=== PATIENT | male | born 1995 | race Caucasian/White ===

== ENCOUNTER 2018-10-05 23:54 | Emergency (ER) ==
[2018-10-06 00:25] VITALS: BP 151/91; TEMP 98.1; BMI 26.9
[2018-10-06] MEDS ORDERED: ATARAX PO STA (00:50)
--- NOTE | 2018-10-06 00:52 | ED.PDOC ---
General ED Provider: Dr. ROLAND ARTEAGA Chief Complaint: Behavioral Complaint Stated Complaint: patient states that he feels nervous mostly around crouds. he lost his father one year ago. Has an obsession for picking on his skin due to being nervous. Time Seen by Physician: 00:50 Mode of Arrival: Walk-In Information Source: Patient Nursing and Triage Documentation Reviewed and Agree: Yes Does patient meet sepsis criteria?: No System Inflammatory Response Syndrome: Not Applicable Sepsis Protocol: For patient's 13 years and over: Temp is 96.8 and below OR 101 and greater Pulse >90 BPM Resp >20/minute Acutely Altered Mental Status Are patient's symptoms suggestive of a new infection, such as: -Pneumonia -Skin, Soft Tissue -Endocarditis -UTI -Bone, Joint Infection -Implantable Device -Acute Abdominal Infection -Wound Infection -Meningitis -Blood Stream Catheter Infection -Unknown Psychological Complaint Exam - Psychiatric Complaint/Exam Patient Complains Of: Present: Other (anxiety ) Onset/Duration: months Symptoms Are: Still present Timing: Constant Aggravating: Reports: None Associated Signs And Symptoms: Denies: Hostile, Confused, Hallucinating, Paranoid behavior, Sleep disturbance, Appetite change Related History: Denies: Suicidal thoughts, Suicidal plan, Suicidal gestures, Homicidal thoughts, Homicidal plan, Homicidal gestures, Prior attempts, Recent stressors, Drug ingestion Completed Suicide Risk Factors: None Patient Accompanied By: Family Patient In Custody Of Police: No Social Withdrawal Present: Yes (due to anxiety ) Social Isolation Present: Yes (due to anxiety ) Prior Suicide Attempt: No Injury From Prior Suicide Attempt: No Related Surgical History: Reports: None Patient Uncooperative For Exam: No Mood: Present: Depressed, Anxious Appearance: Present: Clean Thought Process: Present: Logical Insight: Present: Limited Memory: Intact Judgement: Impaired Danger To Others: No Patient Medically Stable For: Psych evaluation Differential Diagnoses: Anxiety, Bipolar Disorder, Depression Review of Systems - Review Of Systems Constitutional: Reports: No symptoms Eyes: Reports: No symptoms Ears, Nose, Mouth, Throat: Reports: No symptoms Respiratory: Reports: No symptoms Cardiac: Reports: No symptoms GI: Reports: No symptoms : Reports: No symptoms Musculoskeletal: Reports: No symptoms Skin: Reports: Lesions (forearms ), Rash Neurological: Reports: Anxiety, Depressed, Emotional problems Endocrine: Reports: No symptoms Hematologic/Lymphatic: Reports: No symptoms All Other Systems: Reviewed and Negative Past Medical History - Past Medical History Previously Healthy: Yes Endocrine: Reports: None Cardiovascular: Reports: A-Fib (treated with ablation ) Respiratory: Reports: None Hematological: Reports: None Gastrointestinal: Reports: None Genitourinary: Reports: None Neuro/Psych: Reports: None Musculoskeletal: Reports: None Cancer: Reports: None - Surgical History General Surgical History: Reports: Other (hear ablation for Atrial fibrilation. ) - Family History Family History: Reports: Unknown - Social History Smoking Status: Dips snuff Hx Substance Use: (OCCASIONAL MARIJUANA) Alcohol Screening: None - Immunizations Tetanus Shot up to Date: (UNKNOWN) Physical Exam - Physical Exam Appearance: Well-appearing, No pain distress, Well-nourished Eyes: LISSET, EOMI, Conjunctiva clear ENT: Ears normal, Nose normal, Oropharynx normal Respiratory: Airway patent, Breath sounds clear, Breath sounds equal, Respirations nonlabored Cardiovascular: RRR, Pulses normal, No rub, No murmur GI/: Soft, Nontender, No masses, Bowel sounds normal, No Organomegaly Musculoskeletal: Normal strength, ROM intact, No edema, No calf tenderness Skin: Warm, Dry (multiple scabs on the forearms from picking. ) Neurological: Sensation intact, Motor intact, Reflexes intact, Cranial nerves intact, Alert, Oriented Psychiatric: Anxious, Depressed Critical Care Note - Critical Care Note Total Time (mins): 0 Course - Course Orders, Labs, Meds: Orders Category Date Time Status Hydroxyzine HCl [Atarax] MEDS 10/06/18 00:50 Discontinued 50 mg PO ONCE STA Medications Discontinued Medications Generic Name Dose Route Start Last Admin Trade Name Freq PRN Reason Stop Dose Admin Hydroxyzine HCl 50 mg 10/06/18 00:50 10/06/18 00:59 Atarax PO 10/06/18 00:51 50 mg ONCE STA Administration Vital Signs: Temp Pulse Resp BP Pulse Ox 10/05/18 23:56 98.1 F 67 18 151/91 H 98 Departure - Departure Time of Disposition: 00:57 Disposition: HOME SELF-CARE Discharge Problem: Chronic anxiety, Neurodermatitis Instructions: Anxiety (ED) Condition: Fair Pt referred to PMD for follow-up: Yes IPMP verified?: No Additional Instructions: FOLLOW UP WITH FAMILY COUNSELLING CLOSE TO YOU TAKE HYDROXYZINE NEEDED FOR ANXIETY. Prescriptions: Hydroxyzine HCl 25 mg PO QID PRN #30 tablet PRN Reason: Anxiety Allergies/Adverse Reactions: Allergies GUN POWDER Adverse Reaction (Uncoded 10/06/18 00:12) Swelling Home Medications: Ambulatory Orders Hydroxyzine HCl 25 mg PO QID PRN #30 tablet 10/06/18 Disposition Discussed With: Patient, Family
== END 2018-10-06 01:05 | disposition home or self-care (01) ==
LOC: ED 23:54
DX: F41.9 Anxiety disorder, unspecified (principal); L28.0 Lichen simplex chronicus
CPT/HCPCS: 99282